=== PATIENT | male | born 1940 | race Hispanic/Latino ===

== ENCOUNTER 2023-04-10 09:04 | Observation (INO) | payer OTHER, MEDICARE ==
[~2023-04-10] VITALS: Ht 157.5 cm; Wt 62.6 kg
[~2023-04-10 09:04] MED LIST: ACET-2079 PO; CYCL5TAB PO; FENT1PAT61 TD; GABA-531 PO; LISI20TA24 PO; SIMV40TA59 PO
[2023-04-10 09:22] LABS: BASOPHILS % (AUTO) 0.1 % (0.0-5.0); EOSINOPHILS % (AUTO) 1.5 % (0.0-8.0); HEMATOCRIT 32.8 % (42-54); MEAN CORPUSCULAR HEMOGLOBIN 32.5 pg (27.0-33.0); MEAN CORPUSCULAR HGB CONC 33.2 g/dL (32.0-36.0); MEAN CORPUSCULAR VOLUME 97.9 fL (79-99); MONOCYTES % (AUTO) 5.3 % (3.0-13.0); NEUTROPHILS % (AUTO) 60.8 % (40.0-77.0); PLATELET COUNT (AUTO) 152 K/uL (130-400); RED BLOOD CELL COUNT(AUTO) 3.35 MIL/uL (4.50-6.20); RED CELL DISTRIBUTION WIDTH 13.2 % (11.0-15.5); WHITE BLOOD COUNT (AUTO) 7.3 K/uL (4.8-10.8)
[2023-04-10] MEDS: DEXTROSE 5 %-0.45 % NACL 1,000 ML IV SCH (09:27)
[2023-04-10] MEDS ORDERED: ONDANSETRON 4MG INJ IVP PRN (09:30)
[2023-04-10] MEDS ORDERED: GUAIFENESIN-DM 200/20 MG 10 ML PO PRN (09:30)
[2023-04-10] MEDS ORDERED: MORPHINE 4 MG SYG IM PRN (09:30)
[2023-04-10] MEDS ORDERED: DIPHENHYDRAMINE HCL 25 MG CAPSULE PO PRN (09:30)
[2023-04-10] MEDS ORDERED: NITROGLYCERIN 0.4 MG SL TAB SL PRN (09:30)
[2023-04-10] MEDS ORDERED: LACTULOSE 20 GM/30 ML UDCUP PO PRN (09:30)
[2023-04-10] MEDS ORDERED: ENOXAPARIN SODIUM 60 MG/0.6 ML SQ ONE (09:30)
[2023-04-10] MEDS ORDERED: ZOLPIDEM TARTRATE 5 MG TAB PO PRN (09:30)
[2023-04-10 09:33] LABS: CREATININE 1.2 mg/dL (0.5-1.5); POTASSIUM 4.9 mmol/L (3.5-5.1)
[2023-04-10] MEDS ORDERED: TEMA15CA PO (09:35)
[2023-04-10] MEDS ORDERED: TICA90TA PO (09:35)
[2023-04-10] MEDS ORDERED: AMLO-257 PO (09:35)
[2023-04-10] MEDS ORDERED: PANT40TA54 PO (09:35)
[2023-04-10] MEDS ORDERED: GABA-529 PO (09:35)
[2023-04-10] MEDS ORDERED: ACET-66 PO (09:35)
[2023-04-10] MEDS ORDERED: LISI40TA9 PO (09:35)
[2023-04-10] MEDS ORDERED: TRAM50TA4 PO (09:35)
[2023-04-10 09:37] LABS: ALBUMIN 3.7 g/dL (3.5-5.0); BILIRUBIN,DIRECT 0.1 mg/dL (0.0-0.3); TOTAL PROTEIN, SERUM 7.3 g/dL (6.0-8.3)
[2023-04-10 09:42] LABS: APPEARANCE,URINE CLEAR (CLEAR); BILIRUBIN,URINE NEGATIVE (NEGATIVE); COLOR,URINE LIGHT-YELLOW (YELLOW); GLUCOSE, URINE (UA) NEGATIVE (NEGATIVE); KETONES,URINE NEGATIVE (NEGATIVE); LEUKOCYTE ESTERASE ,URINE NEGATIVE Leu/uL (NEGATIVE); NITRATE,URINE NEGATIVE (NEGATIVE); OCCULT BLOOD,URINE SMALL (NEGATIVE); PROTEIN,URINE NEGATIVE (NEGATIVE); UROBILINOGEN,URINE 0.2 mg/dL (0.2-1.0)
[2023-04-10 09:59] LABS: MUCUS,URINE RARE LPF (None Seen); WBC,URINE 0-1 /HPF (0-1)
[2023-04-10 12:15] VITALS: BP 146/71
[2023-04-10] MEDS ORDERED: REGADENOSON 0.4 MG/5 ML PF SYG IVP SCH (13:30)
[2023-04-10 16:00] VITALS: BP 130/64
[2023-04-10] MEDS: ACETAMINOPHEN 325 MG TAB PO PRN (16:01)
[2023-04-10] MEDS: FAMOTIDINE 20MG TAB PO SCH (19:55)
[2023-04-10 20:06] VITALS: BP 119/71
[2023-04-10 23:40] VITALS: BP 132/63
[2023-04-11 04:08] VITALS: BP 138/56
[2023-04-11 05:45] LABS: BASOPHILS % (AUTO) 0.2 % (0.0-5.0); EOSINOPHILS % (AUTO) 2.5 % (0.0-8.0); HEMATOCRIT 30.2 % (42-54); LYMPHOCYTES % (AUTO) 37.1 % (21.0-51.0); MEAN CORPUSCULAR HEMOGLOBIN 32.4 pg (27.0-33.0); MEAN CORPUSCULAR HGB CONC 33.1 g/dL (32.0-36.0); MEAN CORPUSCULAR VOLUME 97.7 fL (79-99); MONOCYTES % (AUTO) 5.1 % (3.0-13.0); NEUTROPHILS % (AUTO) 54.7 % (40.0-77.0); PLATELET COUNT (AUTO) 132 K/uL (130-400); RED BLOOD CELL COUNT(AUTO) 3.09 MIL/uL (4.50-6.20); RED CELL DISTRIBUTION WIDTH 13.2 % (11.0-15.5); WHITE BLOOD COUNT (AUTO) 4.9 K/uL (4.8-10.8)
[2023-04-11] MEDS: DEXTROSE 5 %-0.45 % NACL 1,000 ML IV SCH (05:49)
[2023-04-11 06:02] LABS: ALBUMIN 3.1 g/dL (3.5-5.0); BILIRUBIN,DIRECT 0.1 mg/dL (0.0-0.3); TOTAL PROTEIN, SERUM 6.4 g/dL (6.0-8.3)
[2023-04-11 07:59] VITALS: BP 137/70
[2023-04-11] MEDS ORDERED: ASPIRIN 325MG TAB PO SCH (09:00)
[2023-04-11] MEDS: FAMOTIDINE 20MG TAB PO SCH (09:34)
[2023-04-11] MEDS: ACETAMINOPHEN 325 MG TAB PO PRN (09:43)
== END 2023-04-11 12:10 | disposition home or self-care (01) ==
LOC: EDH 09:04 → DIRECT 09:13 → 3DH 12:21
PROVIDERS: ADMIT Internal Medicine; ATTEND Internal Medicine
DX: R07.89 Other chest pain (principal); I10 Essential (primary) hypertension; R06.02 Shortness of breath; I25.10 Atherosclerotic heart disease of native coronary artery without angina pectoris; E78.5 Hyperlipidemia, unspecified; I25.2 Old myocardial infarction; I21.3 ST elevation (STEMI) myocardial infarction of unspecified site; M19.90 Unspecified osteoarthritis, unspecified site; N40.0 Benign prostatic hyperplasia without lower urinary tract symptoms; Z87.891 Personal history of nicotine dependence; Z79.899 Other long term (current) drug therapy; Z86.73 Personal history of transient ischemic attack (TIA), and cerebral infarction without residual deficits
CPT/HCPCS: 96372; 96360; 96361 ×2; 99285; 82550 ×3; 80076 ×2; 83874 ×3; 84484 ×3; 80048 ×2; 85025 ×2; 81001; 36415 ×2; 71045; 93017; 78452; 93005; G0378 ×27; J1650; J2785; A9500 ×2; 96374

== ENCOUNTER → 2024-01-17 | Outpatient (CLI) | payer OTHER, MEDICARE ==
[~2024-01-17] MED LIST changes: -ACET-2079 PO; +ACET-66 PO; +AMLO-257 PO; -CYCL5TAB PO; -FENT1PAT61 TD; +GABA-529 PO; -GABA-531 PO; -LISI20TA24 PO; +LISI40TA9 PO; +PANT40TA54 PO; +TEMA15CA PO; +TICA90TA PO; +TRAM50TA4 PO
== END | disposition home or self-care (01) ==
LOC: RAH 09:15
PROVIDERS: ATTEND Internal Medicine
DX: K44.9 Diaphragmatic hernia without obstruction or gangrene (principal); K21.9 Gastro-esophageal reflux disease without esophagitis; R14.0 Abdominal distension (gaseous)
CPT/HCPCS: 74240